=== PATIENT | female | born 1965 | race Two or more races ===

== ENCOUNTER 2017-09-25 08:33 | Outpatient (CLI) | payer OTHER | END 2017-09-25 08:42 | disposition home or self-care (01) | LOC: SONOGRAMA 08:33 | DX: E04.2 Nontoxic multinodular goiter (principal) ==

== ENCOUNTER 2019-12-08 10:32 | Emergency (ER) | payer OTHER ==
[~2019-12-08] VITALS: Ht 165.1 cm; Wt 81.6 kg
[2019-12-08] MEDS ORDERED: FORTAMET1000 MG (10:41)
[2019-12-08] MEDS ORDERED: SYNTHROID88 MCG (10:42)
[2019-12-08] MEDS ORDERED: PRAVASTATIN SOD20 MG (10:44)
== END 2019-12-08 13:41 | disposition home or self-care (01) ==
LOC: ER 10:32
DX: H92.02 Otalgia, left ear (principal); B37.3 Candidiasis of vulva and vagina

== ENCOUNTER 2020-09-23 13:51 | Emergency (ER) | payer OTHER ==
[~2020-09-23] VITALS: Ht 162.6 cm; Wt 72.6 kg
[~2020-09-23 13:51] MED LIST: FORTAMET1000 MG; PRAVASTATIN SOD20 MG; SYNTHROID88 MCG
== END 2020-09-23 15:49 | disposition designated cancer center or children's hospital (05) ==
LOC: ER 13:51
DX: I63.89 Other cerebral infarction (principal); Z11.52 Encounter for screening for COVID-19

== ENCOUNTER 2021-03-30 08:46 | Emergency (ER) | payer OTHER ==
[~2021-03-30] VITALS: Ht 165.1 cm; Wt 70.8 kg
[2021-03-30] MEDS ORDERED: DICLOFENAC POTA50 MG PO (18:50)
[2021-03-30] MEDS ORDERED: PYRIDIUM DS200 MG PO (18:50)
[2021-03-30] MEDS ORDERED: ZITHROMAX500 MG PO (18:50)
== END 2021-03-30 19:09 ==
LOC: ER 08:46
DX: N39.0 Urinary tract infection, site not specified (principal); B34.9 Viral infection, unspecified; B96.0 Mycoplasma pneumoniae [M. pneumoniae] as the cause of diseases classified elsewhere; Z03.818 Encounter for observation for suspected exposure to other biological agents ruled out

== ENCOUNTER 2021-04-18 09:23 | Emergency (ER) | payer OTHER ==
[~2021-04-18] VITALS: Ht 162.6 cm; Wt 83.9 kg
[~2021-04-18 09:23] MED LIST changes: +DICLOFENAC POTA50 MG PO; +PYRIDIUM DS200 MG PO; +ZITHROMAX500 MG PO
[2021-04-18] MEDS ORDERED: AMOX1TAB5 PO (15:23)
[2021-04-18] MEDS ORDERED: KETO10TA2 PO (15:23)
[2021-04-18] MEDS ORDERED: NORFLEX100MG PO (15:23)
== END 2021-04-18 16:14 | disposition home or self-care (01) ==
LOC: ER 09:23
DX: A49.3 Mycoplasma infection, unspecified site (principal); E72.51 Non-ketotic hyperglycinemia; Z03.818 Encounter for observation for suspected exposure to other biological agents ruled out; E11.65 Type 2 diabetes mellitus with hyperglycemia

== ENCOUNTER 2021-06-08 10:28 | Outpatient (CLI) | payer OTHER ==
[~2021-06-08 10:28] MED LIST changes: +AMOX1TAB5 PO; +KETO10TA2 PO; +NORFLEX100MG PO
== END 2021-06-08 10:34 | disposition home or self-care (01) ==
LOC: RAD 10:28
PROVIDERS: ATTEND Physical Medicine & Rehabilitation
DX: M19.042 Primary osteoarthritis, left hand (principal)

== ENCOUNTER 2021-07-11 09:00 | Outpatient (CLI) | payer OTHER | END 2021-07-11 09:15 | disposition home or self-care (01) | LOC: PPH VACUNA 09:00 | PROVIDERS: ATTEND Emergency Medicine Pediatric Emergency Medicine | DX: Z23 Encounter for immunization (principal) ==

== ENCOUNTER 2021-08-29 12:39 | Emergency (ER) | payer OTHER ==
[~2021-08-29] VITALS: Ht 165.1 cm; Wt 72.6 kg
[2021-08-29] MEDS ORDERED: KETO10TA2 PO (16:08)
== END 2021-08-29 17:59 | disposition home or self-care (01) ==
LOC: ER 12:39
DX: K13.79 Other lesions of oral mucosa (principal)